=== PATIENT | female | born 1950 | race Caucasian/White ===

== ENCOUNTER 2017-07-13 18:34 | Emergency (ER) | payer BC ==
--- NOTE | 2017-07-13 18:55 | UC ---
Headache HPI - History Of Current Complaint Chief Complaint: UCHeadache Stated Complaint: HEADACHES Time Seen by Provider: 07/13/17 18:54 - Allergies/Home Medications Allergies/Adverse Reactions: Allergies Allergy/AdvReac Type Severity Reaction Status Date / Time Erythromycin Allergy Severe Rash Verified 07/13/17 18:52 Penicillins Allergy Severe Swelling Verified 07/13/17 18:52 Home Medications: Home Medications Atenolol TAB* [Tenormin TAB* 25 MG] 25 mg PO DAILY 07/13/17 [History Confirmed 07/13/17] PMH/Surg Hx/FS Hx/Imm Hx - Surgical History Surgical History: Yes Surgery Procedure, Year, and Place: hiatal hernia repair. bladder lift. - Social History Alcohol Use: None Substance Use Type: None Smoking Status (MU): Former Smoker When Did the Patient Quit Smoking/Using Tobacco: 30 years Physical Exam Vital Signs: Initial Vital Signs Temp 99.6 F 07/13/17 18:48 Pulse 83 07/13/17 18:48 Resp 16 07/13/17 18:48 BP 141/58 07/13/17 18:48 Pulse Ox 100 07/13/17 18:48
[2017-07-13 18:57] VITALS: BP 141/58
--- NOTE | 2017-07-13 19:05 | UC ---
Throat Pain/Nasal Tez HPI - HPI Summary HPI Summary: 66 yo female with nasal congestion/post nasal drip and headache x 1 week bilateral ear ache R>L pain upper teeth and gums sensitive FRANKLIN currently pressure sensation and across forehead has felt feverish - History of Current Complaint Chief Complaint: UCHeadache Stated Complaint: HEADACHES Time Seen by Provider: 07/13/17 18:54 Hx Obtained From: Patient Onset/Duration: Gradual Onset, Lasting Weeks - 1 Severity: Moderate Pain Intensity: 6 Pain Scale Used: 0-10 Numeric Cough: None Associated Signs & Symptoms: Positive: Sinus Discomfort, Nasal Discharge - Epiglottits Risk Factors Epiglottis Risk Factors: Negative - Allergies/Home Medications Allergies/Adverse Reactions: Allergies Allergy/AdvReac Type Severity Reaction Status Date / Time Erythromycin Allergy Severe Rash Verified 07/13/17 18:52 Penicillins Allergy Severe Swelling Verified 07/13/17 18:52 Home Medications: Home Medications Atenolol TAB* [Tenormin TAB* 25 MG] 25 mg PO DAILY 07/13/17 [History Confirmed 07/13/17] PMH/Surg Hx/FS Hx/Imm Hx Previously Healthy: Yes Cardiovascular History: Hypertension - Surgical History Surgical History: Yes Surgery Procedure, Year, and Place: hiatal hernia repair. bladder lift. - Family History Known Family History: Positive: Hypertension - Social History Alcohol Use: None Substance Use Type: None Smoking Status (MU): Former Smoker When Did the Patient Quit Smoking/Using Tobacco: 30 years Review of Systems Constitutional: Fever - edinson Skin: Negative Eyes: Negative ENT: Dental Pain, Nasal Discharge, Sinus Congestion, Sinus Pain/Tenderness Respiratory: Negative Cardiovascular: Negative Gastrointestinal: Negative Genitourinary: Negative Motor: Negative Neurovascular: Negative Musculoskeletal: Negative Neurological: Headache Psychological: Negative All Other Systems Reviewed And Are Negative: Yes Physical Exam Triage Information Reviewed: Yes Appearance: Well-Appearing, No Pain Distress, Well-Nourished Vital Signs: Initial Vital Signs Temp 99.6 F 07/13/17 18:48 Pulse 83 07/13/17 18:48 Resp 16 07/13/17 18:48 BP 141/58 07/13/17 18:48 Pulse Ox 100 07/13/17 18:48 Vital Signs Reviewed: Yes Eyes: Positive: Conjunctiva Clear ENT: Positive: Hearing grossly normal, Nasal congestion, Nasal drainage, TM bulging, Other: - bilateral sinus tenderness R>L. Negative: TM red, Tonsillar swelling, Tonsillar exudate, Trismus, Muffled/hoarse voice Neck: Positive: Nontender, No Lymphadenopathy Respiratory: Positive: Lungs clear, Normal breath sounds, No respiratory distress Cardiovascular: Positive: RRR, No Murmur Musculoskeletal: Positive: ROM Intact, No Edema Neurological: Positive: Alert Psychological Exam: Normal Skin Exam: Normal Throat Pain/Nasal Course/Dx - Differential Dx/Diagnosis Provider Diagnoses: acute sinusitis Discharge - Discharge Plan Condition: Stable Disposition: HOME Prescriptions: Cefuroxime Axetil [Ceftin 250 MG] 250 mg PO BID #20 tab Patient Education Materials: Sinusitis (ED) Referrals: Eloy Garrett MD [Primary Care Provider] - 5 Days (if not better ) Additional Instructions: warm facial compresses neti pot continue ibuprofen for pain recheck for new or worsening symptoms
== END 2017-07-13 19:10 | disposition home or self-care (01) ==
LOC: UCCORT 18:34
DX: J01.90 Acute sinusitis, unspecified (principal); H92.03 Otalgia, bilateral; I10 Essential (primary) hypertension; Z88.1 Allergy status to other antibiotic agents; Z88.0 Allergy status to penicillin; Z87.891 Personal history of nicotine dependence
CPT/HCPCS: 99212; G0463

== ENCOUNTER 2018-05-30 11:35 | Emergency (ER) | payer BC, OTHER ==
[2018-05-30 11:43] VITALS: BP 148/59
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
--- OUTSIDE RECORDS SUMMARY | 2018-05-30 11:51 | XMS REPORT ---
:1950 External Reference #:[id number] Author Organization [employer] Address [address] [place] [address] Phone [phone] Care Team Providers Name Role Phone Eloy Garrett MD Primary Care Physician Unavailable Payers Type Date Identification Numbers Payment Provider Subscriber Commercial Policy Number: [id number] [facility] Carlita Cortes PayID: [id number] [address] [place] [address] Problems Date Description Provider Status Onset: 11/07/2017 Migraine without aura Lisa Ahuja M.D. Active Family History Date Family Member(s) Problem(s) Comments General Hypertension General Heart Disease General Hypercholesterolemia General Cancer General Rheumatoid Arthritis Father Heart Disease Mother Hypercholesterolemia Mother Cancer Social History Type Date Description Comments Marital Status Lives With Occupation [employer] Cigarette Use Former Cigarette Smoker 1 Pack Daily Cigars Never Smoked Cigars Pipe Never Smoked A Pipe Smokeless Tobacco Never Used Smokeless Tobacco ETOH Use Occasionally consumes alcohol Smoking Patient is a former smoker Recreational Drug Use Denies Drug Use Allergies, Adverse Reactions, Alerts Date Description Reaction Status Severity Comments 08/13/2014 Erythromycin Urticaria active 08/13/2014 Penicillin Urticaria active 08/12/2015 Cefdinir Nausea and Vomiting active Medications Medication Date Status Form Strength Qnty SIG Indications Ordering Provider Ipratropium 04/25/ Active Solution 0.06% 15ml instill 2 Vladimir Perry 2018 sprays Justina, into each M.D. nostril twice a day as needed for runny nose Amlodipine 00/00/ Active Tablets 5mg 1 tab by Jessy, Besylate 0000 mouth Claudia, daily C [employer] Ibuprofen 200 00/00/ Active Tablets 200mg every 6 Unknown 0000 hours daily. 1800MG-240 0MG Zonisamide 11/07/ Hx Capsules 25mg 120cap 1-4 caps G43.009 Lisa HenleyMaria D 2016 - s by mouth Stackman, 04/17/ every M.D. 2018 night as directed Clotrimazole 08/13/ Hx Solution 1% 1bottl 4 drops to Vladimir 2013 - e right ear Justina, 08/12/ twice a M.D. 2013 day for 7 days Kimmie 00/00/ Hx Tablets 180mg 30tabs 1 by mouth Unknown 0000 - every day 08/12/ as needed 2013 Avapro /00/ Hx Tablets 150mg 90tabs 1 by mouth Unknown 0000 - every day 2016 Estrace / Hx Cream 0.1mg/GM as Unknown 0000 - directed 2016 Genteal / Hx Gel 0.25-0.3% as Unknown 0000 - directed 2016 Ibuprofen 200 / Hx Tablets 200mg 400-600mg Unknown 0000 - every 6 11/06/ hours as 2017 needed for pain. Intrarosa / Hx Insert 6.5mg as Unknown 0000 - directed 2016 Naprosyn 00/ Hx Tablets 500mg 1 by mouth Unknown 0000 - twice a day w food 2017 prn Vital Signs Date Vital Result Comment 05/08/2018 Height 63.5 inches 5'3.50" Weight 168.00 lb Heart Rate 68 /min BP Systolic Sitting 122 mmHg BP Diastolic Sitting 68 mmHg Respiratory Rate 16 /min BMI (Body Mass Index) 29.3 kg/m2 04/25/2018 Height 63.5 inches 5'3.50" Weight 169.00 lb Heart Rate 66 /min BP Systolic Sitting 138 mmHg BP Diastolic Sitting 68 mmHg Respiratory Rate 16 /min Pain Level 4 BMI (Body Mass Index) 29.5 kg/m2 11/07/2017 Height 63.5 inches 5'3.50" Weight 168.00 lb Heart Rate 110 /min BP Systolic Sitting 132 mmHg BP Diastolic Sitting 70 mmHg Respiratory Rate 16 /min Pain Level 3 O2 % BldC Oximetry 98 % Ra BMI (Body Mass Index) 29.3 kg/m2 08/12/2015 Weight 156.00 lb Heart Rate 76 /min BP Systolic Sitting 122 mmHg BP Diastolic Sitting 80 mmHg 08/20/2014 Heart Rate 78 /min BP Systolic Sitting 122 mmHg BP Diastolic Sitting 80 mmHg 08/13/2014 Height 63.5 inches 5'3.50" Weight 160.00 lb Heart Rate 78 /min BP Systolic Sitting 122 mmHg BP Diastolic Sitting 80 mmHg BMI (Body Mass Index) 27.9 kg/m2 Results Description No Information Procedures Description No Information Encounters Type Date Location Provider CPT E/M Dx Office Visit 05/08/2018 [place] [facility] Albino Ayala, 96363 G43.009 2:15p [facility] Lory.Jose De Jesus Office Visit 04/25/2018 [facility] M.D. 49034 H92.01 3:45p C.MJuanita AT [place] J30.0 R51 Office Visit 11/07/2017 1:00p [place] Lisa Ahuja, 68481 G43.009 [facility] M.DMaria D Office Visit 08/12/2015 3:15p [facility] Horn, [address]992 388.70 AT [facility].DMaria D Office Visit 09/03/2014 1:15p [facility]Jess[facility] [place], [address] 380.[facility] 08/20/2014 3:30p [facility]uan[facility], [address] 380.10 [facility] 08/13/2014 3:00p [facility], 475[address] 380.[facility] 05/08/2018 - Albino Ayala M.D.G43.009 Migraine w/o aura, not intractable, w /o status migrainosusFollow up:Follow up prnRecommendations:Call with return of headaches and we will consider Topamax or another preventative medication
== END 2018-05-30 12:04 | disposition short-term general hospital (02) ==
LOC: UCCORT 11:35
DX: R55 Syncope and collapse (principal); R06.00 Dyspnea, unspecified; R00.2 Palpitations; Z87.891 Personal history of nicotine dependence; Z88.0 Allergy status to penicillin; Z88.1 Allergy status to other antibiotic agents
CPT/HCPCS: 93005; 99212; G0463